=== PATIENT | female | born 2000 | race Two or more races ===

== ENCOUNTER 2023-08-18 21:59 | Emergency (ER) | payer SELFPAY ==
[~2023-08-18] VITALS: Ht 167.6 cm; Wt 98.0 kg
[2023-08-18 22:03] VITALS: BP 127/74; PULSE 114; RESP 16; TEMP 98.1
== END 2023-08-19 00:51 | disposition left against medical advice (07) ==
LOC: EMS 21:59
DX: Z53.21 Procedure and treatment not carried out due to patient leaving prior to being seen by health care provider (principal)
CPT/HCPCS: 99281; Z7502

== ENCOUNTER 2023-12-23 04:16 | Emergency (ER) | payer MEDICAID ==
[~2023-12-23] VITALS: Ht 157.5 cm; Wt 81.8 kg
[2023-12-23 04:19] VITALS: BP 123/73; PULSE 99; RESP 15; TEMP 97.8
[2023-12-23] MEDS ORDERED: SULF-261 PO (05:00)
[2023-12-23] MEDS ORDERED: DIPH25CA85 PO (05:00)
[2023-12-23] MEDS ORDERED: METH4TAB3 PO (05:00)
[2023-12-23] MEDS: DiphenhydrAMINE HCL 50 MG CAPSULE PO ONE (05:19)
[2023-12-23] MEDS: SULFAMETHOX/TRIMETH DS 800-160 MG/TABLET PO ONE (05:19)
[2023-12-23] MEDS: DEXAMETHASONE SOD PHOS 4 MG/ML 5 ML VIAL IM ONE (05:19)
== END 2023-12-23 05:54 | disposition home or self-care (01) ==
LOC: EMS 04:16
DX: T78.49XA Other allergy, initial encounter (principal); L03.211 Cellulitis of face; X58.XXXA Exposure to other specified factors, initial encounter
CPT/HCPCS: 99283; 96372; J1100

== ENCOUNTER 2024-01-13 17:22 | Emergency (ER) | payer MEDICAID ==
[~2024-01-13] VITALS: Ht 167.6 cm; Wt 90.9 kg
[~2024-01-13 17:22] MED LIST: DIPH25CA85 PO; METH4TAB3 PO; SULF-261 PO
[2024-01-13 17:30] VITALS: BP 116/85; PULSE 118; RESP 18; TEMP 98.4
[2024-01-13 18:45] LABS: ANION GAP 8 mmol/L (8-16); CALCIUM, TOTAL 8.8 mg/dL (8.8-10.5); CARBON DIOXIDE 29 mmol/L (22-29); CHLORIDE 105 mmol/L (98-107); CREATININE 0.65 mg/dL (0.60-1.30); GLOMERULAR FILTR. RATE CALC > 60 mL/min (>60); GLUCOSE,RANDOM 97 mg/dL (70-110); POTASSIUM 3.1 mmol/L (3.5-5.1); SODIUM SERUM 142 mmol/L (136-145); UREA NITROGEN, BLOOD 18 mg/dL (7-18)
[2024-01-13 18:46] LABS: BASOPHILS % (AUTO) 0.4 % (0.0-2.0); EOSINOPHILS % (AUTO) 0.7 % (1.0-6.0); HEMATOCRIT 35.2 % (36-46); HEMOGLOBIN 11.5 g/dL (12.0-16.0); LYMPHOCYTES # (AUTO) 1.4 K/uL (1.0-4.8); LYMPHOCYTES % (AUTO) 17.6 % (22.0-44.0); MEAN CORPUSCULAR HEMOGLOBIN 27.8 pg (26.0-34.0); MEAN CORPUSCULAR HGB CONC 32.6 G/dL (31.0-37.0); MEAN CORPUSCULAR VOLUME 85 fL (80-100); MONOCYTES # (AUTO) 0.7 K/uL (0.1-1.0); MONOCYTES % (AUTO) 8.4 % (2.0-9.0); NEUTROPHILS # (AUTO) 5.8 K/uL (1.8-7.7); NEUTROPHILS % (AUTO) 72.9 % (40.0-70.0); PLATELET COUNT (AUTO) 318 K/uL (150-450); RED BLOOD CELL COUNT(AUTO) 4.14 MIL/uL (4.00-5.20); RED CELL DISTRIBUTION WIDTH 15.7 % (11.5-14.5); WHITE BLOOD COUNT (AUTO) 7.9 K/uL (4.5-11.0)
== END 2024-01-13 21:30 | disposition left against medical advice (07) ==
LOC: EMS 17:22
DX: M79.602 Pain in left arm (principal); Z53.21 Procedure and treatment not carried out due to patient leaving prior to being seen by health care provider
CPT/HCPCS: 80048; 85025

== ENCOUNTER 2024-01-15 00:20 | Emergency (ER) | payer MEDICAID ==
[~2024-01-15] VITALS: Ht 167.6 cm; Wt 90.9 kg
[2024-01-15 00:33] VITALS: BP 112/72; PULSE 122; RESP 20; TEMP 98.2
[2024-01-15 00:58] LABS: BASOPHILS % (AUTO) 0.3 % (0.0-2.0); EOSINOPHILS % (AUTO) 0.4 % (1.0-6.0); HEMATOCRIT 33.7 % (36-46); HEMOGLOBIN 10.9 g/dL (12.0-16.0); LYMPHOCYTES # (AUTO) 1.8 K/uL (1.0-4.8); LYMPHOCYTES % (AUTO) 15.8 % (22.0-44.0); MEAN CORPUSCULAR HEMOGLOBIN 27.4 pg (26.0-34.0); MEAN CORPUSCULAR HGB CONC 32.5 G/dL (31.0-37.0); MEAN CORPUSCULAR VOLUME 84 fL (80-100); MONOCYTES # (AUTO) 0.8 K/uL (0.1-1.0); NEUTROPHILS # (AUTO) 8.5 K/uL (1.8-7.7); NEUTROPHILS % (AUTO) 76.5 % (40.0-70.0); PLATELET COUNT (AUTO) 340 K/uL (150-450); RED CELL DISTRIBUTION WIDTH 15.3 % (11.5-14.5); WHITE BLOOD COUNT (AUTO) 11.2 K/uL (4.5-11.0)
[2024-01-15 01:12] LABS: ANION GAP 6 mmol/L (8-16); CALCIUM, TOTAL 8.7 mg/dL (8.8-10.5); CARBON DIOXIDE 31 mmol/L (22-29); CHLORIDE 104 mmol/L (98-107); CREATININE 0.83 mg/dL (0.60-1.30); GLOMERULAR FILTR. RATE CALC > 60 mL/min (>60); GLUCOSE,RANDOM 121 mg/dL (70-110); POTASSIUM 3.4 mmol/L (3.5-5.1); SODIUM SERUM 141 mmol/L (136-145); UREA NITROGEN, BLOOD 20 mg/dL (7-18)
[2024-01-15 01:18] LABS: ALANINE AMINOTRANSFERASE 22 U/L (12-78); ALKALINE PHOSPHATASE 67 U/L (46-116); ASPARTATE AMINOTRANSFERASE 20 U/L (15-37); BILIRUBIN,TOTAL 0.5 mg/dL (0.1-1.0); TOTAL PROTEIN, SERUM 7.5 g/dL (6.4-8.2)
[2024-01-15 01:24] LABS: TROPONIN I-HIGH SENSITIVITY Less Than 4 ng/L (<51)
[2024-01-15] MEDS ORDERED: CEPH-558 PO (01:28)
[2024-01-15] MEDS ORDERED: BACTDSB PO (01:28)
[2024-01-15] MEDS: SULFAMETHOX/TRIMETH DS 800-160 MG/TABLET PO ONE (01:50)
[2024-01-15] MEDS: ACETAMINOPHEN 500 MG TABLET PO ONE (01:50)
[2024-01-15] MEDS: LIDOCAINE/PF 1% 2 ML VIAL IM ONE (01:51)
[2024-01-15] MEDS: CefTRIAXone SODIUM 1 GM/VIAL IM ONE (01:51)
[2024-01-15 02:01] LABS: ALCOHOL, URINE DRUG SCREEN NEGATIVE (NEGATIVE); AMPHET/METH SCREEN,URINE POSITIVE (NEGATIVE); BARBITURATE SCREEN, URINE NEGATIVE (NEGATIVE); BENZODIAZEPINES SCREEN,URINE NEGATIVE (NEGATIVE); CANNABINOID SCREEN,URINE POSITIVE (NEGATIVE); COCAINE SCREEN,URINE NEGATIVE (NEGATIVE); METHADONE SCREEN, URINE NEGATIVE (NEGATIVE); OPIATE SCREEN,URINE NEGATIVE (NEGATIVE); PHENCYCLIDINE SCREEN,URINE NEGATIVE (NEGATIVE)
== END 2024-01-15 03:05 | disposition home or self-care (01) ==
LOC: EMS 00:20
DX: L03.114 Cellulitis of left upper limb (principal); R07.9 Chest pain, unspecified; F41.9 Anxiety disorder, unspecified
CPT/HCPCS: 99285; 10060; 71045; 80053; 87205; 84484; 85025; 36415; 87186; 87070; 80307; 93005; 96372; J0696; J3490

== ENCOUNTER 2024-11-14 19:50 | Emergency (ER) | payer MEDICAID, OTHER ==
[~2024-11-14] VITALS: Ht 165.1 cm; Wt 99.1 kg
[~2024-11-14 19:50] MED LIST changes: +BACTDSB PO; +CEPH-558 PO
[2024-11-14 21:02] VITALS: TEMP 98.2
[2024-11-14 21:22] LABS: BASOPHILS % (AUTO) 0.3 % (0.0-2.0); HEMATOCRIT 36.2 % (36-46); HEMOGLOBIN 11.9 g/dL (12.0-16.0); LYMPHOCYTES # (AUTO) 2.2 K/uL (1.0-4.8); LYMPHOCYTES % (AUTO) 24.5 % (22.0-44.0); MEAN CORPUSCULAR HEMOGLOBIN 28.2 pg (26.0-34.0); MEAN CORPUSCULAR HGB CONC 32.8 G/dL (31.0-37.0); MEAN CORPUSCULAR VOLUME 86 fL (80-100); MONOCYTES # (AUTO) 0.6 K/uL (0.1-1.0); MONOCYTES % (AUTO) 6.8 % (2.0-9.0); NEUTROPHILS # (AUTO) 5.9 K/uL (1.8-7.7); NEUTROPHILS % (AUTO) 67.4 % (40.0-70.0); PLATELET COUNT (AUTO) 306 K/uL (150-450); WHITE BLOOD COUNT (AUTO) 8.8 K/uL (4.5-11.0)
[2024-11-14 21:24] LABS: ANION GAP 11 mmol/L (8-16); CALCIUM, TOTAL 8.8 mg/dL (8.8-10.5); CARBON DIOXIDE 27 mmol/L (22-29); CHLORIDE 105 mmol/L (98-107); CREATININE 0.63 mg/dL (0.60-1.30); GLOMERULAR FILTR. RATE CALC > 60 mL/min (>60); GLUCOSE,RANDOM 112 mg/dL (70-110); POTASSIUM 3.8 mmol/L (3.5-5.1); SODIUM SERUM 143 mmol/L (136-145); UREA NITROGEN, BLOOD 17 mg/dL (7-18)
[2024-11-14 21:49] LABS: HCG,QUANTITATIVE 4249 mIU/mL (0-6)
[2024-11-14] MEDS: ONDANSETRON 4 MG TABLET PO ONE (23:33)
[2024-11-14] MEDS: IBUPROFEN 600 MG TABLET PO ONE (23:33)
[2024-11-14] MEDS: ACETAMINOPHEN 500 MG TABLET PO ONE (23:35)
[2024-11-15 00:14] VITALS: BP 139/83; PULSE 97; RESP 17; O2SAT 99
== END 2024-11-15 00:44 ==
LOC: EMS 19:50
DX: Z33.2 Encounter for elective termination of pregnancy (principal); S60.212A Contusion of left wrist, initial encounter; Z79.899 Other long term (current) drug therapy; X58.XXXA Exposure to other specified factors, initial encounter; Y93.89 Activity, other specified; Y92.89 Other specified places as the place of occurrence of the external cause; Y99.8 Other external cause status
CPT/HCPCS: 99284; 80048; 84702; 85025; 36415; 73110; 76856; Q0162

== ENCOUNTER 2025-03-25 17:43 | Emergency (ER) | payer OTHER | END 2025-03-25 18:17 | disposition left against medical advice (07) | LOC: EMS 17:43 | DX: R11.10 Vomiting, unspecified (principal); Z53.21 Procedure and treatment not carried out due to patient leaving prior to being seen by health care provider ==